=== PATIENT | male | born 1985 | race Caucasian/White ===

== ENCOUNTER 2019-03-03 12:45 | Outpatient (CLI) | payer OTHER ==
[2019-03-03 14:00] VITALS: BP 124/70
--- NOTE | 2019-03-03 14:00 | SLEEP CARE CONSULTATION ---
Information from patient questionnaire entered by Kaylee Guajardo. I have reviewed and concur with the information entered by Kaylee Guajardo. This document represents the service I personally performed and the decisions made by me, Zayra Richardson, RN, MSN, [employer]. History of Present Illness Reason for Visit: New patient Chief Complaint: reports: Unrefreshed sleep, Snoring, Frequent awakenings at night Duration of Symptoms: 4-5 years Usual bedtime: 12am Time it takes to fall asleep: 1-2 hours -works the PM shift -gets home 10:30 -11:30pm-reads to wind down Snores at night: Yes Observed to quit breathing while asleep: No (spouse asleep when patient gets home due to shift difference) Sleeps alone due to snoring: No Number of times waking at night: 3 Reasons for waking at night: reports: Snoring, Pain (muscle skeletal ), Bathroom. denies: Choking, Gasping for air Toss, Turn, or Twitch while sleeping: Yes ( reports he moves alot in sleep- so larger bed ) Recalls having dreams: No Usually gets out of bed at: 8am Feels refreshed in the morning: No Morning headache: Yes (resolves after 30 minutes with coffee and breakfast) Sleepy or fatigued during the day: Yes Ever fallen asleep while driving: No Takes day naps: Yes (naps on day off for about an hour) Dreams during day naps: No Prior sleep studies: No - Parasomnia Symptoms Ever been unable to move upon waking from sleep: Yes (1 time only / waking with arms numb 1-2 times a week) Walks in sleep: No Talks in sleep: Yes Ever acted out dreams in sleep: No Ever felt weak in the knees when startled or emotional: Yes (left knee injury) Bothered by creepy, crawly, restless sensations in legs: Yes (waking to and relieved with movement) Problems with memory or concentration: Yes Subjective Initial [place] Sleepiness Scale score: 6 Past Medical History Past Medical History: reports: Anxiety, Depression, Mood disorder (PTSD -sees counselor ) Social History 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 Patient is and lives in [place]. Have you smoked in the past 12 months: No Years of smokin Quit date: 2017 Alcohol use: Yes Alcohol amount and frequency: 1-2 a month Caffeine use: Yes Caffeine amount and frequency: 1 cup coffee in the morning Family History Family history of sleep disordered breathing: Yes Family Hx Sleep Apnea: Father: Sleep apnea - Treated (normal weight) Allergies and Home Medications Known drug allergies: No Home medication list reviewed: No (no medications ) Review of Systems Cardiovascular: reports: high blood pressure (has been elevated in past ). denies: palpitations, chest pain, irregular heart rate or pulse, leg or foot swelling, have to sleep sitting up, other Respiratory: denies: shortness of breath, wheeze, sputum production, chronic cough, other Gastrointestinal: denies: heartburn, difficulty swallowing, nausea, vomitting, diarrhea, abdominal pain, other Urinary: denies: incontinence, frequency, urgency, impotence, other Neurological: reports: headaches (MRI negative ), other (vertigo a couple times a week ). denies: seizure, head trauma, disorientation, speech dysfunction, gait or balance problems, fainting or unconsciousness Psychiatric: reports: anxiety, depression (denies thoughts of hurting self or others), mood disorder. denies: Attention Deficit Hyperactivity, claustrophobia, other Ear/Nose/Throat: reports: nasal congestion (seasonally), nose bleeds (3-4 times a week), hoarseness. denies: sinus problems, dry mouth/throat, injury to nose, tonsillectomy, wisdom teeth removed, other Endocrine: reports: sluggishness. denies: thyroid disease, history of goiter, too hot or cold, excessive thirst, increased appetite, increased urination, unexplained weakness, other Musculoskeletal: reports: joint pain (chronic joint and muscle pain), neck pain, back pain, muscle pain or cramping. denies: joint swelling, mobility problems Immunologic: reports: sneezing, allergies to food or environment Physical Exam Blood Pressure: 124/70 Cuff size: regular Heart Rate: 72 O2 Saturation: 98 Height: 6 ft Weight: 194 lb Body Mass Index: 26.3 BMI Classification: Overweight Neck circumference: 16 HEENT: No craniofacial malformation Nostrils: partially obstructed Turbinates: swollen Septum: midline (septum seems midline but left nare seems slightly more narrow) Mouth and throat: narrow oropharynx Soft palate: long Hard palate: normal Uvula: long Uvula visualization: 25% Mallampati Class III Tongue: normal in size Tonsils: 1+ Chin and jaw: normal size and position Neck: normal w/o lymphadenopathy or thyromegaly Heart: regular rate and rhythm Lungs: clear bilaterally Abdomen: soft Extremities: no edema or clubbing Impression and Plan 1. Suspected Obstructive Sleep Apnea-Hypopnea Syndrome, as suggested by a history of loud and irregular snoring, morning headache, frequent awakening during the night, unrefreshed sleep, cognitive impairment, and excessive daytime sleepiness. Narrow oropharynx and obesity are common predisposing factors for obstructive sleep apnea-hypopnea syndrome. I recommend proceeding to polysomnography to confirm the diagnosis and to assess severity. If the patient has significant sleep disordered breathing, a manual CPAP titration study will also be performed to find the optimal treatment pressure. I informed the patient of what the sleep studies involve and after some discussion, obtained agreement to proceed. The pathophysiology of obstructive sleep apnea-hypopnea syndrome was discussed with the patient and health risks of cardiovascular and cerebrovascular disease if not treated. [facility] brochure for obstructive sleep apnea-hypopnea syndrome given and reviewed. Risks of drowsy driving discussed in detail and patient advised to avoid long distance driving and to extract puller at the first sign of drowsiness. Patient agreed to plan. 2. Vertigo and epitaxis , frequent, a couple times a week. Patient states MRI negative. Thus patient advised to follow up with PCP and referral to ENT or further evaluation 3. Numbness and tingling of both arms and frequent muscle skeletal pain disrupting sleep. He is waking to both arms numb a couple times a week and most nights awakens to muscle skeletal pain. Thus he was advised to follow up with PCP for further evaluation and referral for orthopedic consult as indicated. * Schedule polysomnography. * Avoid long distance driving or driving when feeling sleepy. * Avoid alcohol, sedative and muscle relaxant around bedtime. * Attempt to lose weight. * Review instructions provided by trained office staff on how to prepare for the sleep study. * Return for follow-up after sleep study completed. * Follow up with PCP as noted above for referral to ENT and evaluation for possible orthopedic consult if indicated. Time Spent with Patient (minutes): 45 I spent 100% of this visit face to face with the patient with greater than 50% of this was spent time counseling the patient and coordination of care.
== END 2019-03-03 12:46 | disposition home or self-care (01) ==
LOC: SC 12:45
PROVIDERS: ATTEND Nurse Practitioner Family
DX: R06.83 Snoring (principal); R51 Headache; G47.8 Other sleep disorders; R41.89 Other symptoms and signs involving cognitive functions and awareness; G47.10 Hypersomnia, unspecified; R42 Dizziness and giddiness; R04.0 Epistaxis; R20.2 Paresthesia of skin
CPT/HCPCS: 99204; 99212

== ENCOUNTER 2019-03-18 19:24 | Outpatient (CLI) | payer OTHER | END 2019-03-18 19:25 | disposition home or self-care (01) | LOC: SC 19:24 | PROVIDERS: ATTEND Internal Medicine Pulmonary Disease | DX: R06.83 Snoring (principal); G47.8 Other sleep disorders; G47.10 Hypersomnia, unspecified | CPT/HCPCS: 95810 ==

== ENCOUNTER 2019-04-01 13:14 | Outpatient (CLI) | payer OTHER ==
[2019-04-01 14:10] VITALS: BP 118/78
--- NOTE | 2019-04-01 14:10 | SLEEP CARE CONSULTATION ---
Information from patient questionnaire entered by Kaylee Guajardo. I have reviewed and concur with the information entered by Kaylee Guajardo. This document represents the service I personally performed and the decisions made by me, Zayra Richardson, RN, MSN, [employer]. History of Present Illness Initial [place] Sleepiness Scale score: 6 Current [place] Sleepiness Scale score: 7 Additional HPI information: CHANTAL MCKINNEY returns for follow up of the recently performed polysomnography and informed of findings. I explained the pathophysiology behind obstructive sleep apnea. Patient does not have sleep apnea and was advised how weight gain could increase the risk of dev eloping sleep apnea in the future. I strongly encouraged the patient to lose some weight. Patient has mild snoring. Snoring can be reduced by weight loss. Snoring can also be treated with an oral appliance from a dentist. Advised to check insurance coverage. Patient not interested in oral appliance at this time . In addition, an ENT evaluation can be do to see if other treatment is indicated. He has daily nasal congestion. Difficulty breathing through his nose can contribute to sleep fragmentation and thus recommended to follow up for referral to ENT. Patient counseled not drink alcohol less than 4 hours before bedtime as it can increase snoring and apnea. Patient does not drink alcohol. Patient was cautioned about risks of drowsy driving until sleepiness symptoms resolve. Patient denies drowsy driving. [facility] patient education on snoring and sleep apnea given and reviewed at initial visit. Review of patient medical history: Patient saw PCP and obtained referral to ENT. He did not get obtain referral to orthopedics for re-evaluation of muscle skeletal pain which disrupts sleep as noted at last visit. Review of sleep schedule. Bedtime is 1-2am as he works PM shift and wake time is 6-7am as he takes his children to school. His sleep is also disrupted by spouse awaking at 6am. Thus he is averaging 5 hours of sleep most nights. He will sleep in about an hour to 7am and feels more rested on the weekend. ] Sleep Study - Results Polysomnography/Home Sleep Study results: The quality of the study is good. The patient had normal sleep efficiency. The sleep architecture was normal as well. Respiratory monitoring showed no significant sleep disordered breathing (AHI = 0.7) or +hypoxia (dayron oxygen saturation of 91%). The patient slept adequately in supine position (supine AHI = 1.7; nonsupine = 0.00). Snore was light in intensity. There was no significant periodic leg movement of sleep. Cardiac rhythm was normal sinus rhythm without significant arrhythmia. No abnormal behavior (parasomnia) observed during the night. Allergies and Home Medications Known drug allergies: No Home medication list reviewed: Yes (none) Review of Systems Review of systems same as previous: Yes Physical Exam Blood Pressure: 118/78 Cuff size: regular Heart Rate: 77 O2 Saturation: 99 Height: 6 ft Weight: 197 lb (with boots ) Body Mass Index: 26.7 BMI Classification: Overweight Impression and Plan 1. Snoring but no significant sleep disordered breathing. Patient advised that often weight loss will reduce snoring as well as apnea risk. An oral appliance can also be used for snoring but he is not interested at this time. This would require a dental consultation. Patient cautioned not to use other online appliances as can cause bite issues. An ENT consult can also be helpful to determine if any other treatment is an option. Patient has a referral and was advised to pursue due to nasal congestion which could disrupt sleep and contribute to daytime sleepiness. 2. Fatigue could be from sleep disruption from snoring or muscle skeletal pain. Fatigue could also be from inadequate sleep during the week due to PM shift late bedtime and early wake time allowing only 5 hours of sleep at most. Since he is more rested on weekends when able to get at least 6 hours of sleep, I recommend striving for more hours of sleep during the week. Most people require 7-9 hours of sleep for optimal mental and physical functioning.This is something he is to discuss with spouse for best schedule for both their schedules for each to obtain adequate sleep. * Obtain more sleep * Keep same sleep schedule all days of week * Attempt to lose some weight * Avoid alcohol consumption near bedtime * The patient is cautioned about driving until sleepiness is completely resolved. * Follow up with ENT referral * Follow up with PCP in regard to further evaluation of muscle skeletal pain. Time Spent with Patient (minutes): 30 I spent 100% of this visit face to face with the patient with greater than 50% of this was spent time counseling the patient and coordination of care.
== END 2019-04-01 13:15 | disposition home or self-care (01) ==
LOC: SC 13:14
PROVIDERS: ATTEND Nurse Practitioner Family
DX: R06.83 Snoring (principal); R53.83 Other fatigue; E66.3 Overweight; Z68.26 Body mass index [BMI] 26.0-26.9, adult
CPT/HCPCS: 99212; 99214

== ENCOUNTER 2020-03-09 11:48 | Outpatient (CLI) | payer BC, OTHER ==
[2020-03-09 18:51] LABS: BASOPHILS % (AUTO) 0.5 %; EOSINOPHILS # (AUTO) 0.1 10^3/uL (0.0-0.7); EOSINOPHILS % (AUTO) 0.9 %; HGB - HEMOGLOBIN 14.6 g/dL (14.0-18.0); LYMPHOCYTES # (AUTO) 1.8 10^3/uL (1.5-3.5); LYMPHOCYTES % (AUTO) 33.3 %; MEAN CORPUSCULAR HEMOGLOBIN 27.7 pg (27.0-31.0); MEAN CORPUSCULAR HGB CONC 31.8 g/dL (32.0-36.0); MEAN CORPUSCULAR VOLUME 87.1 fL (80.0-94.0); MEAN PLATELET VOLUME 10.3 fL (7.4-11.4); MONOCYTES # (AUTO) 0.4 10^3/uL (0.0-1.0); MONOCYTES % (AUTO) 7.1 %; NEUTROPHILS # (AUTO) 3.2 10^3/uL (1.5-6.6); PLT - PLATELET COUNT 295 10^3/uL (130-450); RED BLOOD COUNT 5.27 10^6/uL (4.70-6.10); RED CELL DISTRIBUTION WIDTH 12.8 % (12.0-15.0); WHITE BLOOD COUNT 5.5 x10^3/uL (4.8-10.8)
[2020-03-09 19:15] LABS: ALBUMIN 4.9 g/dL (3.2-5.5); ALBUMIN/GLOBULIN RATIO 1.8 (1.0-2.2); ALKALINE PHOSPHATASE 80 IU/L (42-121); ALT ALANINE AMINOTRANSFERASE 30 IU/L (10-60); AST ASPARTATE AMINOTRANSFERASE 20 IU/L (10-42); BILIRUBIN,TOTAL 0.7 mg/dL (0.2-1.0); BUN - BLOOD UREA NITROGEN 14 mg/dL (6-20); CALCIUM 9.5 mg/dL (8.5-10.3); CARBON DIOXIDE - CO2 29 mmol/L (21-32); CHLORIDE 103 mmol/L (101-111); CHOL/HDL RATIO 3.7 (<5.0); CHOLESTEROL 176 mg/dL; GLUCOSE 95 mg/dL (70-100); HDL CHOLESTEROL 47 mg/dL; LDL CHOLESTEROL,CALCULATED 116 mg/dL; LDL/HDL RATIO 2.5 (<3.6); TOTAL PROTEIN 7.6 g/dL (6.7-8.2); VLDL CHOLESTEROL 13 mg/dL
== END 2020-03-09 23:59 | disposition home or self-care (01) ==
LOC: LAB.WCP 11:48
PROVIDERS: ATTEND Nurse Practitioner Family
DX: Z00.00 Encounter for general adult medical examination without abnormal findings (principal)
CPT/HCPCS: 36415; 80053; 80061; 83721; 84443; 85025

== ENCOUNTER 2020-11-17 08:24 | Outpatient (CLI) | payer BC, OTHER ==
--- NOTE | 2020-11-17 15:03 | XRAY Report ---
PROCEDURE: Shoulder 2 View LT INDICATIONS: LEFT SHOULDER PAIN TECHNIQUE: 2 views of the shoulder were acquired. COMPARISON: None. FINDINGS: BONES: No acute, displaced fracture or dislocation. The glenohumeral and acromioclavicular joint spac es are maintained. SOFT TISSUES: No focal abnormality or appreciable pneumothorax. IMPRESSION: 1.No acute osseous abnormality. Reviewed by: Iván Hong MD on 11/17/2020 3:01 PM PDT Approved by: Iván Hong MD on 11/17/2020 3:01 PM PDT Station ID: [id number]
--- NOTE | 2020-11-17 15:49 | XRAY Report ---
PROCEDURE: Cervical Spine 2 View INDICATIONS: NECK PAIN TECHNIQUE: 5 view(s) of the cervical spine were acquired. COMPARISON: None. FINDINGS: Bones: No fractures or dislocations to the C7-T1 level. Straightening of normal cervical lordosis is seen. The lateral masses of C1 appear intact on the odontoid view. No suspicious bony lesions. Soft tissues: No prevertebral soft tissue swelling. IMPRESSION: Straightening of normal cervical lordosis likely due to neck muscle spasm. No fracture o r dislocation. Reviewed by: Michael Owusu MD on 11/17/2020 3:48 PM PDT Approved by: Michael Owusu MD on 11/17/2020 3:48 PM PDT Station ID: [id number]
== END 2020-11-17 08:25 ==
LOC: DI.N 08:24
PROVIDERS: ATTEND Family Medicine
DX: M54.12 Radiculopathy, cervical region (principal)